=== PATIENT | female | born 1935 | race Caucasian/White ===

== ENCOUNTER 2018-02-05 06:35 | Emergency (ER) | payer MEDICARE ==
[~2018-02-05] VITALS: Ht 162.6 cm; Wt 55.0 kg
[2018-02-05 06:43] VITALS: BP 178/84; PULSE 65; RESP 18; TEMP 98.1; O2SAT 92
[2018-02-05] MEDS ORDERED: TROS60CA2 PO (06:43)
[2018-02-05] MEDS ORDERED: METO25TA3 PO (06:43)
[2018-02-05] MEDS ORDERED: ASPI-516 CHEW (06:43)
[2018-02-05] MEDS ORDERED: LISI-515 PO (06:43)
[2018-02-05 07:16] VITALS: BP 161/72; PULSE 61; RESP 16; O2SAT 95
--- NOTE | 2018-02-05 07:33 | PD ---
HPI Chief Complaint: Fall Time Seen by Provider: 07:10 Travel History International Travel<30 days: No Contact w/Intl Traveler<30days: No Traveled to known affect area: No History of Present Illness HPI Patient presents to the emergency department complaining of right shoulder pain. She is visiting from [place] and try to get into a really high bed this morning when her left leg and foot slipped and she fell on her right shoulder. She tried to grab a hold of something to break the fall but could not. She did not hit her head, no LOC, no chest pain, no shortness of breath, no neck pain, no back pain, no nausea, no vomiting, no numbness, but reports tingling and right upper extremity. She was able to ambulate after this happened. She received 8 mg of morphine IV by EMS prior to arrival. She has a history of hypertension but did not take her medication this morning. PFSH Past Medical History Atrial Fibrillation: Yes Hypertension: Yes Medical other: Yes (gerd, acid reflux) Tetanus Vaccination: Unknown Influenza Vaccination: Yes ?: Not : 4 Para: 4 Tubal Ligation: Yes Past Surgical History Cholecystectomy: Yes Other Surgery: Yes (kidney stone surgeries, 9 inches colon removed 11/08) Social History Alcohol Use: Yes (rarely ) Tobacco Use: No Substance Use: Yes Allergies-Medications (Allergen,Severity, Reaction): Coded Allergies: No Known Allergies (Verified Allergy, Unknown, 02/05/18) Reported Meds & Prescriptions Reported Meds & Active Scripts Active [place] (Hydrocodone-Acetaminophen) 5 Mg-325 Mg Tab 1 Tab PO Q6H PRN 3 Days Reported Trospium ER 60 Mg Cap 60 Mg PO DAILY Metoprolol Tartrate 25 Mg Tab 25 Mg PO BID Aspirin 81 Mg Chew 81 Mg CHEW ONCE Lisinopril 20 Mg Tab 20 Mg PO DAILY Review of Systems Except as stated in HPI: all other systems reviewed are Neg Physical Exam Narrative GENERAL: No acute distress. Resting in stretcher with ice pack to right shoulder. Family and room. SKIN: Focused skin assessment warm/dry. HEAD: Atraumatic. Normocephalic. EYES: Extraocular muscles intact bilaterally. No scleral icterus. No injection or drainage. ENT: No nasal bleeding or discharge. Mucous membranes pink and moist. NECK: Trachea midline. No JVD. No focal C-spine tenderness. CARDIOVASCULAR: Regular rate and rhythm. No murmur appreciated. RESPIRATORY: No accessory muscle use. Clear to auscultation. Breath sounds equal bilaterally. GASTROINTESTINAL: Abdomen soft, non-tender, nondistended. Hepatic and splenic margins not palpable. MUSCULOSKELETAL: Right shoulder swelling and tenderness to palpation. Limited range of motion secondary to pain. No clubbing. No cyanosis. No edema. No focal T or L-spine tenderness. RUE: Sensation intact, 2+ radial pulse, cap refill less than 3 seconds: NEUROLOGICAL: Awake and alert. No obvious cranial nerve deficits. Normal speech. PSYCHIATRIC: Appropriate mood and affect; insight and judgment normal. Data Data Last Documented VS Vital Signs Date Time Temp Pulse Resp B/P (MAP) Pulse Ox O2 Delivery O2 Flow Rate FiO2 02/05/18 08:14 63 16 92 Nasal Cannula 2.00 02/05/18 06:43 98.1 Orders Orders Complete Blood Count With Diff (02/05/18 07:24) Comprehensive Metabolic Panel (02/05/18 07:24) Prothrombin Time / Inr (Pt) (02/05/18 07:24) Act Partial Throm Time (Ptt) (02/05/18 07:24) Iv Access Insert/Monitor (02/05/18 07:24) Ecg Monitoring (02/05/18 07:24) Oximetry (02/05/18 07:24) Shoulder, Complete (>2vws) (02/05/18 07:24) Elbow, Limited (Ap&Lat) (02/05/18 07:24) Humerus (Min 2vws) (02/05/18 07:24) Sling And Swathe (02/05/18 ) Labs Laboratory Tests Test 02/05/18 08:10 White Blood Count 6.8 TH/MM3 Red Blood Count 4.10 MIL/MM3 Hemoglobin 11.1 GM/DL Hematocrit 33.9 % Mean Corpuscular Volume 82.7 FL Mean Corpuscular Hemoglobin 26.9 PG Mean Corpuscular Hemoglobin Concent 32.6 % Red Cell Distribution Width 15.4 % Platelet Count 289 TH/MM3 Mean Platelet Volume 8.7 FL Neutrophils (%) (Auto) 59.7 % Lymphocytes (%) (Auto) 32.1 % Monocytes (%) (Auto) 5.9 % Eosinophils (%) (Auto) 1.8 % Basophils (%) (Auto) 0.5 % Neutrophils # (Auto) 4.1 TH/MM3 Lymphocytes # (Auto) 2.2 TH/MM3 Monocytes # (Auto) 0.4 TH/MM3 Eosinophils # (Auto) 0.1 TH/MM3 Basophils # (Auto) 0.0 TH/MM3 CBC Comment DIFF FINAL Differential Comment Prothrombin Time 10.2 SEC Prothromb Time International Ratio 1.0 RATIO Activated Partial Thromboplast Time 22.2 SEC Blood Urea Nitrogen 17 MG/DL Creatinine 0.91 MG/DL Random Glucose 87 MG/DL Total Protein 7.2 GM/DL Albumin 3.2 GM/DL Calcium Level 9.6 MG/DL Alkaline Phosphatase 64 U/L Aspartate Amino Transf (AST/SGOT) 25 U/L Alanine Aminotransferase (ALT/SGPT) 14 U/L Total Bilirubin 0.4 MG/DL Sodium Level 142 MEQ/L Potassium Level 5.0 MEQ/L Chloride Level 110 MEQ/L Carbon Dioxide Level 27.0 MEQ/L Anion Gap 5 MEQ/L Estimat Glomerular Filtration Rate 59 ML/MIN MDM Medical Decision Making Medical Screen Exam Complete: Yes Emergency Medical Condition: Yes Interpretation(s) CBC: Slight decrease in hemoglobin and hematocrit; Last Impressions Shoulder X-Ray 02/05/18723 Signed Impressions: Service Date/Time: Monday, February 05, 2018 07:54 - CONCLUSION: Fracture through the surgical neck of the proximal humerus. Negrito Duran MD Humerus X-Ray 02/05/18723 Signed Impressions: Service Date/Time: Monday, February 05, 2018 07:54 - CONCLUSION: Displaced fracture through the surgical neck of the proximal humerus. Negrito Duran MD Elbow X-Ray 02/05/18723 Signed Impressions: Service Date/Time: Monday, February 05, 2018 07:59 - CONCLUSION: No fracture. Negrito Duran MD Differential Diagnosis Shoulder fracture, shoulder dislocation, hematoma, musculoskeletal pain Narrative Course Patient presents to the emergency department after a fall complaining of right shoulder pain. Patient placed on school bus monitor, IV access obtained, and labs and x-ray ordered. At the time of my assessment patient advises that she does not need additional pain medication. BP is 161/72. 1015: Discussed x-ray findings with patient and her family as well as my conversation with orthopedic data migration consultant. Patient is requesting a follow-up with orthopedics at [place] when she returns over the weekend to [place]. Patient will be discharged pain medicine and return instructions Physician Communication Physician Communication [id number]: Orthopedics on-call consulted. [id number]: Spoke to mike Pond construction millwright. Place patient in shoulder immobilizer and have her follow-up. Diagnosis Primary Impression: Humerus fracture Patient Instructions: Arm Fracture in Adults (ED) Additional Instructions: 1. Please continue wear shoulder immobilizer. 2. Meds as directed. 3. Follow- up with orthopedic doctor at [place]. 4. Return to the ER immediately for increased pain, swelling, numbness, tingling, color change in extremity, or for any new/worrisome/worsening symptoms. Med/Other Pt SpecificInfo: Prescription(s) given Scripts Hydrocodone-Acetaminophen ([place]) 5 Mg-325 Mg Tab 1 TAB PO Q6H Y for PAIN for 3 Days, #12 TAB 0 Refills Prov: Jami Nieto MD 02/05/18 Disposition: 01 DISCHARGE HOME Condition: Stable Jami Nieto MD February 05, 2018 07:33
[2018-02-05 08:14] VITALS: PULSE 63; RESP 16; O2SAT 92
--- NOTE | 2018-02-05 08:19 | RADRPT ---
EXAM DATE/TIME: 02/05/2018 07:54 [facility] COMPARISON: No previous studies available for comparison. INDICATIONS : Right upper extremity pain post fall. MEDICAL HISTORY : None. SURGICAL HISTORY : None. ENCOUNTER: Initial ACUITY: 1 day PAIN SCORE: 10/10 LOCATION: Right upper extremity FINDINGS: Multiple view examination of the right shoulder demonstrates mildly displaced fracture through the thomas rgical neck of the proximal humerus. Visualization is limited due to restricted patient movement CONCLUSION: Fracture through the surgical neck of the proximal humerus. Negrito Duran MD on February 05, 2018 at 8:16 Board Certified Radiologist. This report was verified electronically.
--- NOTE | 2018-02-05 08:20 | RADRPT ---
EXAM DATE/TIME: 02/05/2018 07:54 [facility] COMPARISON: No previous studies available for comparison. INDICATIONS : Right upper extremity pain, post fall. MEDICAL HISTORY : None. SURGICAL HISTORY : None. ENCOUNTER: Initial ACUITY: 1 day PAIN SCORE: 10/10 LOCATION: Right upper extremity FINDINGS: Two view examination of the right humerus demonstrates fracture through the surgical neck of the prox imal humerus. The distal humerus remains intact. CONCLUSION: Displaced fracture through the surgical neck of the proximal humerus. Negrito Duran MD on February 05, 2018 at 8:17 Board Certified Radiologist. This report was verified electronically.
--- NOTE | 2018-02-05 08:22 | RADRPT ---
EXAM DATE/TIME: 02/05/2018 07:59 [facility] COMPARISON: No previous studies available for comparison. INDICATIONS : Right shoulder pain post fall. MEDICAL HISTORY : None. SURGICAL HISTORY : None. ENCOUNTER: Initial ACUITY: 1 day PAIN SCORE: 10/10 LOCATION: Right upper extremity FINDINGS: Two view examination of the right elbow is limited due to restricted patient motion. However, no obvi ous fracture or effusion. CONCLUSION: No fracture. Negrito Duran MD on February 05, 2018 at 8:19 Board Certified Radiologist. This report was verified electronically.
[2018-02-05 08:25] LABS: AUTOMATED NEUTROPHIL # 4.1 TH/MM3 (1.8-7.7); BASOPHIL % 0.5 % (0.0-2.0); EOSINOPHIL # 0.1 TH/MM3 (0-0.4); EOSINOPHIL % 1.8 % (0.0-4.0); HEMATOCRIT 33.9 % (35.0-46.0); HEMOGLOBIN 11.1 GM/DL (11.6-15.3); LYMPH % 32.1 % (9.0-44.0); LYMPHOCYTE # 2.2 TH/MM3 (1.0-4.8); MEAN CELL VOLUME 82.7 FL (80.0-100.0); MEAN CORPUSCULAR HEMOGLOBIN 26.9 PG (27.0-34.0); MEAN CORPUSCULAR HGB CONC 32.6 % (32.0-36.0); MEAN PLATELET VOLUME 8.7 FL (7.0-11.0); MONO % 5.9 % (0.0-8.0); MONOCYTE # 0.4 TH/MM3 (0-0.9); NEUT % 59.7 % (16.0-70.0); PLATELET COUNT 289 TH/MM3 (150-450); RED CELL DISTRIBUTION WIDTH 15.4 % (11.6-17.2); WHITE BLOOD COUNT 6.8 TH/MM3 (4.0-11.0)
[2018-02-05 08:43] LABS: PROTHROMBIN TIME - PATIENT 10.2 SEC (9.8-11.6)
[2018-02-05 08:47] LABS: ALKALINE PHOSPHATASE 64 U/L (45-117); TOTAL BILIRUBIN ADULT 0.4 MG/DL (0.2-1.0); TOTAL PROTEIN 7.2 GM/DL (6.4-8.2)
[2018-02-05 09:15] LABS: ALBUMIN 3.2 GM/DL (3.4-5.0); ALT (GPT) 14 U/L (10-53); AST (GOT) 25 U/L (15-37); BLOOD UREA NITROGEN 17 MG/DL (7-18); CALCIUM 9.6 MG/DL (8.5-10.1); CHLORIDE 110 MEQ/L (98-107); CREATININE 0.91 MG/DL (0.50-1.00); GLOMERULAR FILTRATION RATE 59 ML/MIN (>89); GLUCOSE,RANDOM 87 MG/DL (74-106); SODIUM (NA) 142 MEQ/L (136-145)
[2018-02-05] MEDS ORDERED: NORC5TAB PO (10:13)
[2018-02-05] MEDS ORDERED: MORPHINE SULFATE 2 MG/ML SYRINGE IV PUSH ONE (10:30)
[2018-02-05] MEDS ORDERED: ACETAMINOPHEN/HYDROcodone 325 MG/5 MG TAB PO ONE (10:45)
== END 2018-02-05 10:48 | disposition home or self-care (01) ==
LOC: NEPE 06:35
DX: S42.211A Unspecified displaced fracture of surgical neck of right humerus, initial encounter for closed fracture (principal); W01.0XXA Fall on same level from slipping, tripping and stumbling without subsequent striking against object, initial encounter
CPT/HCPCS: 73030; 73060; 73070; 80053; 85025; 85610; 85730; 99284